=== PATIENT | male | born 1970 | race Caucasian/White ===

== ENCOUNTER 2016-11-10 08:22 | Emergency (ER) | payer SELFPAY ==
[~2016-11-10] VITALS: Ht 170.2 cm; Wt 108.9 kg
--- NOTE | 2016-11-10 08:28 | PHYS DOC ---
Adult General Chief Complaint Chief Complaint: LOWER BACK PAIN OR INJURY HPI HPI Patient is a 46 year old male who presents with left flank pain. He states his same pain she has with his previous kidney stones. He states his last kidney stone was approximately 2 years ago. He's been taking Denver without any relief. He states pain started on Tuesday and it was intermittent and is became more severe last night. He states he's having nausea and vomiting unable to keep down his pain meds. He denies any fevers or chills. He denies any chest pain or shortness of breath associated with this. He does state that he has been having hematuria and left testicle pain. He states this is normal for his kidney stones when he presents. He denies any penile discharge or burning on urination.. Review of Systems Review of Systems Constitutional: Denies fever or chills [] Eyes: Denies change in visual acuity, redness, or eye pain [] HENT: Denies nasal congestion or sore throat [] Respiratory: Denies cough or shortness of breath [] Cardiovascular: No additional information not addressed in HPI [] GI: Denies bloody stools or diarrhea, positive for left sided flank pain : Denies dysuria or hematuria [] Musculoskeletal: Denies back pain or joint pain [] Integument: Denies rash or skin lesions [] Neurologic: Denies headache, focal weakness or sensory changes [] Endocrine: Denies polyuria or polydipsia [] Current Medications Current Medications Current Medications Medications (Trade) Dose Ordered Sig/Alvin Start Time Stop Time Status Last Admin Dose Admin Hydromorphone HCl (Dilaudid) 1 mg PRN Q15MIN PRN 11/10/16 10:30 11/11/16 10:29 Ketorolac Tromethamine (Toradol) 30 mg 1X ONCE 11/10/16 11:45 11/10/16 11:46 UNV Morphine Sulfate 4 mg PRN Q15MIN PRN 11/10/16 08:45 11/11/16 08:44 11/10/16 10:21 4 MG Ondansetron HCl (Zofran) 4 mg 1X ONCE 11/10/16 08:45 11/10/16 08:46 DC 11/10/16 08:45 4 MG Ondansetron HCl 4 mg 4 mg STK-MED ONCE 11/10/16 08:42 11/10/16 08:43 DC Sodium Chloride (Iv Sodium Chloride 0.9% 1000ml Bag) 1,000 ml @ 1,000 mls/hr 1X ONCE 11/10/16 10:00 11/10/16 10:59 DC 11/10/16 09:40 1,000 MLS/HR Tamsulosin HCl (Flomax) 0.4 mg 1X ONCE 11/10/16 11:45 11/10/16 11:46 UNV Allergies Allergies Allergies Coded Allergies Type Severity Reaction Last Updated Verified No Known Drug Allergies 11/10/16 No Physical Exam Physical Exam Constitutional: Well developed, well nourished, no acute distress, non-toxic appearance. [] HENT: Normocephalic, atraumatic, bilateral external ears normal, oropharynx moist, no oral exudates, nose normal. [] Eyes: PERRLA, EOMI, conjunctiva normal, no discharge. [] Neck: Normal range of motion, no tenderness, supple, no stridor. [] Cardiovascular:Heart rate regular rhythm, no murmur [] Lungs & Thorax: Bilateral breath sounds clear to auscultation [] Abdomen: Bowel sounds normal, soft, no tenderness, no masses, no pulsatile masses. [] Skin: Warm, dry, no erythema, no rash. [] Back: No tenderness, tender to palpation of the left CVA/flank area Extremities: No tenderness, no cyanosis, no clubbing, ROM intact, no edema. [] Neurologic: Alert and oriented X 3, normal motor function, normal sensory function, no focal deficits noted. [] Psychologic: Affect normal, judgement normal, mood normal. [] Current Patient Data Vital Signs Vital Signs Date Time Temp Pulse Resp B/P Pulse Ox O2 Delivery O2 Flow Rate FiO2 11/10/16 08:25 97.7 79 34 97 Room Air 97.7 Lab Values Laboratory Tests Test 11/10/16 08:40 11/10/16 09:00 White Blood Count 9.9x10^3/uL (4.0-11.0) Red Blood Count 4.86x10^6/uL (4.30-5.70) Hemoglobin 14.7g/dL (13.0-17.5) Hematocrit 42.8% (39.0-53.0) Mean Corpuscular Volume 88fL (79-100) Mean Corpuscular Hemoglobin 30pg (25-35) Mean Corpuscular Hemoglobin Concent 34g/dL (31-37) Red Cell Distribution Width 13.0% (11.5-14.5) Platelet Count 291x10^3/uL (140-400) Neutrophils (%) (Auto) 84% (31-73) H Lymphocytes (%) (Auto) 10% (24-48) L Monocytes (%) (Auto) 5% (0-9) Eosinophils (%) (Auto) 1% (0-3) Basophils (%) (Auto) 0% (0-3) Neutrophils # (Auto) 8.3x10^3uL (1.8-7.7) H Lymphocytes # (Auto) 1.0x10^3/uL (1.0-4.8) Monocytes # (Auto) 0.5x10^3/uL (0.0-1.1) Eosinophils # (Auto) 0.1x10^3/uL (0.0-0.7) Basophils # (Auto) 0.0x10^3/uL (0.0-0.2) Prothrombin Time 12.5SEC (11.7-14.0) Prothrombin Time INR 1.0 (0.8-1.1) PTT 30SEC (24-38) Sodium Level 142mmol/L (136-145) Potassium Level 3.9mmol/L (3.5-5.1) Chloride Level 104mmol/L (98-107) Carbon Dioxide Level 27mmol/L (21-32) Anion Gap 11 (6-14) Blood Urea Nitrogen 15mg/dL (8-26) Creatinine 1.2mg/dL (0.7-1.3) Estimated GFR (Cockcroft-Gault) 65.8 BUN/Creatinine Ratio 13 (6-20) Glucose Level 154mg/dL (70-99) H Calcium Level 9.4mg/dL (8.5-10.1) Total Bilirubin 0.6mg/dL (0.2-1.0) Aspartate Amino Transferase (AST) 37U/L (15-37) Alanine Aminotransferase (ALT) 64U/L (16-63) H Alkaline Phosphatase 75U/L (46-116) Creatine Kinase 128U/L (39-308) Creatine Kinase MB (Mass) 0.9ng/mL (0.0-3.6) Creatine Kinase MB Relative Index 0.7% (0-4) Total Protein 8.2g/dL (6.4-8.2) Albumin 4.1g/dL (3.4-5.0) Albumin/Globulin Ratio 1.0 (1.0-1.7) Lipase 158U/L (73-393) Urine Collection Type Void Urine Color Yellow Urine Clarity Cloudy Urine pH 8.0 Urine Specific Simpson 1.015 Urine Protein Negativemg/dL (NEG-TRACE) Urine Glucose (UA) Negativemg/dL (NEG) Urine Ketones (Stick) Negativemg/dL (NEG) Urine Blood Large (NEG) Urine Nitrite Negative (NEG) Urine Bilirubin Negative (NEG) Urine Urobilinogen Dipstick 0.2mg/dL (0.2 mg/dL) Urine Leukocyte Esterase Negative (NEG) Urine RBC >40/HPF (0-2) Urine WBC 0/HPF (0-4) Urine Squamous Epithelial Cells Occ/LPF Urine Bacteria 0/HPF (0-FEW) Urine Opiates Screen Pos (NEG) Urine Methadone Screen Neg (NEG) Urine Barbiturates Neg (NEG) Urine Phencyclidine Screen Neg (NEG) Urine Amphetamine/Methamphetamine Neg (NEG) Urine Benzodiazepines Screen Neg (NEG) Urine Cocaine Screen Neg (NEG) Urine Cannabinoids Screen Neg (NEG) Urine Ethyl Alcohol Neg (NEG) Laboratory Tests 11/10/16 08:40 Laboratory Tests 11/10/16 08:40 EKG EKG EKG shows sinus rhythm rate of [address] elevations, T-wave inversions noted in lead 3, normal axis, QTC 449 ms, as interpreted by me. Radiology/Procedures Radiology/Procedures [facility] [address] [place] [address] IMAGING REPORT Signed PATIENT: CHARLOTTE PATEL ACCOUNT: [id number] : 1970 LOCATION: ER AGE: 46 SEX: M EXAM STATUS: REG ER ORD. PHYSICIAN: ARACELI MELTON MD REASON: left flank pain stone protocol PROCEDURE: ABDOMEN PELVIS WO CONTRAST Indication left flank pain. Axial images through the abdomen and pelvis were obtained. The examination was tailored for the detection of renal and/or ureteral calculi. No IV or gastrointestinal contrast was administered. No prior imaging is available. There is some minimal volume loss in the right lower lobe likely reflecting atelectasis. A definite significant finding at either lung base is not seen. There is a small hiatus hernia. The liver and spleen appear unremarkable. The gallbladder appears grossly normal. No pancreatic abnormality is seen. There are no adrenal masses. There is stranding surrounding the left kidney and hydronephrosis to the level of a 5 mm calculus just below the UPJ. More distally the left ureter appears normal. A minute left renal calculus is additionally noted. The right kidney and ureter appear unremarkable. In the pelvis there are occasional diverticula seen associated with the large bowel. There is, additionally, some suggested slight wall thickening involving the mid sigmoid colon extending over approximately a 4 cm segment. There is some slight stranding in the surrounding mesentery. The findings are nonspecific. Mild inflammation (diverticulitis) could be responsible for the appearance. An underlying sigmoid mass is not excluded. If not recently performed nonemergent colonoscopy is suggested for additional evaluation and characterization. No additional finding is seen in the pelvis. 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 Minute left renal calculus is additionally noted. Sigmoid diverticulosis. There is possible pathology seen associated with the sigmoid colon. See above discussion. PQRS Compliance Statement: One or more of the following individualized dose reduction techniques were utilized for this examination: 1. Automated exposure control 2. Adjustment of the mA and/or kV according to patient size 3. Use of iterative reconstruction technique DICTATED and SIGNED BY: KAYLIE PADGETT MD DATE: 11/10/16 8388 CC: ARACELI MELTON MD; NON,STAFF ~ Impressions: Left sided kidney stone Possible diverticulitis Course & Med Decision Making Course & Med Decision Making Pertinent Labs and Imaging studies reviewed. (See chart for details) 5 mm left IJP stone. He also has some inflammation of his clonus and a 4 cm segment. They cannot rule out an early mass. Offered admission but he rather go home. He is being discharged home with Denver, Flomax, Cipro Flagyl for the next 7 days. He is instructed to follow up with his urologist within the next 4-5 days he does not have when he can follow-up with Dr. Duvall. He is also to follow -up with a GI physician in they're recommending a colonoscopy to rule out a mass in his colon. He can follow-up with a GI doctor in [place] or come back to [place] and follow up with Dr. Piña. He was informed of the ct findings and states he understands. Return back to ER if worsening pain, fevers, uncontrolled nausea vomiting diarrhea, or other concerns. Dragon Disclaimer Dragon Disclaimer This electronic medical record was generated, in whole or in part, using a voice recognition dictation system. Departure Departure Impression: Primary Impression: Kidney stone Additional Impression: Inflammation of colonic mucosa Disposition: HOME, SELF-CARE Condition: STABLE Referrals: RUSTY DUVALL SCOTT S MD Patient Instructions: Colonoscopy, Kidney Stones Additional Instructions: You have a kidney stone on the left side and it is trying to pass. The CT scan also showed inflammation or possible mass in your colon or large intestine. You will need to follow-up with urology and can take Flomax as instructed and Denver which is a pain pill as needed. Please do not drive while taking Denver as it is a narcotic pain medicine and can impair your judgment and make you sleepy. Follow up with the urologist and rejected items clerk. If you do not have one in [place] and follow-up with R[facility]. Return back to ER if worsening pain, uncontrolled nausea vomiting, fevers, or other concerns. Please do not take Tylenol when you are taking norco pain medicines as their is Tylenol in it already. Scripts Hydrocodone/Apap 5-325 (Denver 5-325 Tablet)1 Each Tablet1-2 Tab PO Q4-6HRS #40 TAB Prov:ARACELI MELTON MD 11/10/16 Tamsulosin Hcl (Flomax)0.4 Mg Cap.er.24h1 Cap PO DAILY #30 CAP Prov:ARACELI MELTON MD 11/10/16 Metronidazole (Flagyl)500 Mg [id number] Mg PO TID 7 Days Prov:ARACELI MELTON MD 11/10/16 Ciprofloxacin Hcl (Cipro)500 Mg [id number] Mg PO BID 7 Days Ref 0 Prov:ARACELI MELTON MD 11/10/16 Problem Qualifiers ARACELI MELTON MD Nov 10, 2016 08:28
[2016-11-10] MEDS ORDERED: IV NORMAL SALINE 1000ML BAG 1,000 ML IV SCH (08:35)
[2016-11-10] MEDS ORDERED: ONDANSETRON PF 4 MG/2 ML VIAL. ONE (08:42)
[2016-11-10] MEDS ORDERED: ONDANSETRON PF 4 MG/2 ML VIAL. IV ONE (08:45)
[2016-11-10] MEDS: MORPHINE SULFATE 4 MG/ML DISP.SYRIN. IV/SQ PRN ×3 (08:47→10:21)
[2016-11-10 09:17] LABS: BASO % 0 % (0-3); EOS % 1 % (0-3); HEMATOCRIT 42.8 % (39.0-53.0); HEMOGLOBIN 14.7 g/dL (13.0-17.5); LYMPH % 10 % (24-48); MEAN CORPUSCULAR HEMOGLOBIN 30 pg (25-35); MEAN CORPUSCULAR HGB CONC 34 g/dL (31-37); MEAN CORPUSCULAR VOLUME 88 fL (79-100); MONO % 5 % (0-9); NEUT % 84 % (31-73); PLATELET COUNT 291 x10^3/uL (140-400); RED BLOOD COUNT 4.86 x10^6/uL (4.30-5.70); WHITE BLOOD COUNT 9.9 x10^3/uL (4.0-11.0)
[2016-11-10 09:31] LABS: BILIRUBIN,URINE NEGATIVE (NEG); GLUCOSE,URINE NEGATIVE (NEG); NITRITE,URINE NEGATIVE (NEG); PROTEIN,URINE NEGATIVE (NEG-TRACE); UROBILINOGEN,URINE 0.2 mg/dL (0.2 mg/dL)
[2016-11-10 09:33] LABS: CALCIUM 9.4 mg/dL (8.5-10.1); CREATININE 1.2 mg/dL (0.7-1.3); GFR 65.8; POTASSIUM 3.9 mmol/L (3.5-5.1)
[2016-11-10 09:37] LABS: PROTHROMBIN TIME PATIENT 12.5 SEC (11.7-14.0)
[2016-11-10 09:37] LABS: BARBITURATES NEG (NEG); BENZODIAZEPINES NEG (NEG); CANNABINOIDS NEG (NEG); COCAINE NEG (NEG); ETHANOL, URINE NEG (NEG); METHADONE NEG (NEG); OPIATES POS (NEG); PHENCYCLIDINE NEG (NEG)
[2016-11-10 09:39] LABS: ALBUMIN 4.1 g/dL (3.4-5.0); TOTAL BILIRUBIN 0.6 mg/dL (0.2-1.0); TOTAL PROTEIN 8.2 g/dL (6.4-8.2)
[2016-11-10 09:46] LABS: CKMB INDEX 0.7 % (0-4); CKMB MASS 0.9 ng/mL (0.0-3.6)
[2016-11-10 09:52] LABS: BACTERIA,URINE 0 /HPF (0-FEW); RBC,URINE >40 /HPF (0-2); SQUAMOUS EPITHELIAL CELL,UR OCC /LPF; WBC,URINE 0 /HPF (0-4)
[2016-11-10] MEDS ORDERED: IV NORMAL SALINE 1000ML BAG 1,000 ML IV ONE (10:00)
[2016-11-10] MEDS ORDERED: HYDROMORPHONE 2 MG/ML VIAL. IV/SQ PRN (10:30)
--- NOTE | 2016-11-10 10:42 | EKG ---
[facility] [address] [place] [address] Test Date: 2016-11-10 Test Time: 10:09:00 Pat Name: CHARLOTTE PATEL Department: Room: Gender: M Physical Security Manager: : 1970 Requested By: ARACELI MELTON Order Number: [id number] Reading MD: Measurements Intervals [place] Rate: 80 P: 35 [place]: 170 QRS: 83 QRSD: 104 T: 23 QT: 386 QTc: 449 Interpretive Statements SINUS RHYTHM R-S TRANSITION ZONE IN V LEADS DISPLACED TO THE LEFT QRS(T) CONTOUR ABNORMALITY CONSIDER ANTEROSEPTAL MYOCARDIAL DAMAGE CONSISTENT WITH INFERIOR INFARCT PROBABLY OLD ABNORMAL ECG RI6.01 No previous ECG available for comparison
--- NOTE | 2016-11-10 11:07 | RAD ---
Indication left flank pain. Axial images through the abdomen and pelvis were obtained. The examination was tailored for the detection of renal and/or ureteral calculi. No IV or gastrointestinal contrast was administered. No prior imaging is available. There is some minimal volume loss in the right lower lobe likely reflecting atelectasis. A definite significant finding at either lung base is not seen. There is a small hiatus hernia. The liver and spleen appear unremarkable. The gallbladder appears grossly normal. No pancreatic abnormality is seen. There are no adrenal masses. There is stranding surrounding the left kidney and hydronephrosis to the level of a 5 mm calculus just below the UPJ. More distally the left ureter appears normal. A minute left renal calculus is additionally noted. The right kidney and ureter appear unremarkable. In the pelvis there are occasional diverticula seen associated with the large bowel. There is, additionally, some suggested slight wall thickening involving the mid sigmoid colon extending over approximately a 4 cm segment. There is some slight stranding in the surrounding mesentery. The findings are nonspecific. Mild inflammation (diverticulitis) could be responsible for the appearance. An underlying sigmoid mass is not excluded. If not recently performed nonemergent colonoscopy is suggested for additional evaluation and characterization. No additional finding is seen in the pelvis. 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 Minute left renal calculus is additionally noted. Sigmoid diverticulosis. There is possible pathology seen associated with the sigmoid colon. See above discussion. PQRS Compliance Statement: One or more of the following individualized dose reduction techniques were utilized for this examination: 1. Automated exposure control 2. Adjustment of the mA and/or kV according to patient size 3. Use of iterative reconstruction technique
[2016-11-10 11:30] VITALS: BP 151/82
[2016-11-10] MEDS ORDERED: TAMSULOSIN 0.4 MG CAP.ER.24H. PO ONE (11:45)
[2016-11-10] MEDS ORDERED: KETOROLAC TROMETHAMINE 30 MG/ML SYRINGE. IV ONE (11:45)
[2016-11-10] MEDS ORDERED: METR500T PO (11:56)
[2016-11-10] MEDS ORDERED: HYDR-971 PO (11:56)
[2016-11-10] MEDS ORDERED: CIPR500T94 PO (11:56)
[2016-11-10] MEDS ORDERED: TAMS0.4C97 PO (11:56)
== END 2016-11-10 12:35 | disposition home or self-care (01) ==
LOC: ER 08:22
DX: N20.0 Calculus of kidney (principal); K52.9 Noninfective gastroenteritis and colitis, unspecified; R31.9 Hematuria, unspecified; N50.812 Left testicular pain
CPT/HCPCS: 36415; 74176; 80053; 81001; 82553; 83690; 85027; 85610; 85730; 93005; 96361; 96374; 96375; 96376; 99285; G0481; J1170; J1885; J2270; J2405; J7030